=== PATIENT | male | born 1955 ===

== ENCOUNTER 2024-03-12 06:29 | Day surgery (SDC) | payer BC, SELFPAY ==
[2024-03-10 09:24] VITALS: BMI 22.2
--- NOTE | 2024-03-10 15:45 | PTCARENOTE ---
Abnormal EKG. Dr. Mak aware. No intervention required.
[2024-03-12 07:54] VITALS: BP 150/87
--- NOTE | 2024-03-12 08:05 | W.SUR.PREOP ---
Pre-Operative Surgical Note
-
I have examined this patient prior to the performance of the scheduled procedure.
The patient's condition is unchanged from the time of the current History and
Physical and the patient is able to undergo the scheduled procedure.
--- NOTE | 2024-03-12 08:05 | HP.FOC2 ---
Focused History & Physical
Chief Complaint
HPI:
Chief Complaint: Recurrent umbilical hernia/incisional hernia
HPI / Indication for Planned Procedure:
This is a 68-year-old male who presented to my office with a symptomatic recurrent umbilical hernia in the setting of a previous robotic repair at an outside hospital.
Relevant Past Medical History: Negative
Relevant Social History: Negative
Relevant Family History: Negative
Relevant Past Surgical History: Positive for (Robotic inguinal and umbilical hernia)
Review of Systems
Review of Pertinent Systems: All Systems Negative
Medication
See Medication form for detailed medications: Yes
Medication List (including Herbals & OTC):
calcium 100 mg capsule 1 mg PO DAILY 03/05/24
cyclobenzaprine 5 mg tablet 5 mg PO TID PRN pain 03/05/24
esomeprazole magnesium 20 mg capsule,delayed release (Nexium) 20 mg PO DAILY 03/05/24
gabapentin 600 mg tablet 600 mg PO DAILY 03/05/24
meloxicam 15 mg tablet 15 mg PO DAILY PRN pain 03/05/24
multivitamin 1 tab PO DAILY 03/05/24
omega 0-xkh-hyi-fish oil 1,000 mg (120 mg-180 mg) capsule (Fish Oil) 1 cap PO DAILY 03/05/24
topiramate 25 mg sprinkle capsule (Topamax) 75 mg PO DAILY 03/05/24
tramadol 300 mg tablet,extended release 24 hr 300 mg PO DAILY 03/05/24
tramadol 50 mg tablet 50 mg PO Q6H PRN pain 03/05/24
Medications Reviewed: Yes
Allergies and Reactions
Patient has Allergies: No
Noted Allergies and Reactions:
Allergy/AdvReac Type Severity Reaction Status Date / Time
No Known Allergies Allergy Unverified 03/12/24 07:51
Pertinent Physical Exam
All Other Systems: Negative
Head/Neck: Normal
Abdomen: Other (Small reducible umbilical hernia)
Diagnosis / Assessment
This is a 68-year-old male with recurrent umbilical/incisional hernia
Plan / Procedure
Will plan for an open repair with mesh
Anesthesia/Sedation to be done by Anesthesia Provider: Yes
[2024-03-12] MEDS: NORMOSOL-R/PLASMALYTE-A 1000 IV (08:09)
[2024-03-12] MEDS: TYLENOL 1000 MG PO (08:09)
[2024-03-12 08:16] VITALS: BMI 22.2
--- NOTE | 2024-03-12 08:57 | W.IMMPOSTOP ---
Surgical Immed Post Op Note
-
primary Surgeon: Sergey Bingham MD
Assisting Surgeon: None
Pre-op Diagnosis: Incisional hernia
Post-op Diagnosis: Same
Procedure Performed: Incisional hernia repair with mesh
Anesthesia Type: General
Specimen / Cultures: None
Estimated Blood Loss: 1 cc
Complications: None
Operative Findings: 1.1 cm recurrent umbilical/incisional hernia containing preperitoneal fat. The defect was reinforced with a 5 cm round macro porous uncoated polypropylene Bard soft mesh placed in an underlay position prior to closing the defect
with a running 0 PDS suture.
[2024-03-12 09:00] VITALS: BP 116/75
--- NOTE | 2024-03-12 09:01 | OR.RPT ---
Operative Report
Operative Report
Patient Name: Landon Chou
: 1955
Date of Operation: 03/12/2024
Preoperative Diagnosis: Incisional hernia
Postoperative Diagnosis: Same
Procedure(s):
Open incisional hernia repair with mesh
Surgeon(s):
Dr. Bingham
Mill Machinist(s):
SHU Kraft
Anesthesia: MAC
Estimated Blood Loss: 1 cc
Urine Output: None
Drains/Lines/Implants: 5 cm round macro porous uncoated polypropylene Bard soft mesh
Specimens: None
Indication for surgery:
The patient has a symptomatic recurrent umbilical/incisional hernia after previous robotic repair. After review of their therapeutic options, and discussion of risk benefits and alternatives they elected to pursue an open repair.
Operative Findings: 1.1 cm recurrent umbilical/incisional hernia containing preperitoneal fat. The defect was reinforced with a 5 cm round macro porous uncoated polypropylene Bard soft mesh placed in an underlay position prior to closing the defect
with a running 0 PDS suture.
Details of the operation:
After successful induction of anesthesia, the patient was prepped and draped in the supine position. A team timeout was performed confirming administration of IV antibiotics and appropriate operative DVT prophylaxis. The skin was anesthestized with
0.25% Marcaine and an infraumbilical incision was made and dissection carried down to the fascia. The hernia sac was then encircled and carefully dissected off of the umbilical stalk and returned to the abdomen. The defect measured 1.1 cm. The
subcutaneous fat was then dissected off of the anterior rectus sheath to create a pocket large enough to accommodate the mesh to ensure the mesh laid completely flat. A running 0 PDS suture was then used to close the incision in a transverse
orientation with a few of them medial bites grabbing a small portion of the mesh to ensure it was secure. The umbilical stalk was then tacked down to the fascia with a 3-0 Vicryl suture. The dermis was then approximated with interrupted 3-0 Vicryl
sutures followed by Dermabond. Once the glue had dried, we placed a folded up piece of gauze into the umbilicus and covered it with a large Tegaderm dressing and then suctioned out the gauze to create a vacuum dressing to help obliterate the
space. The patient returned to the Recovery Room in stable condition. Sponge and instrument counts were correct. No specimens sent to Pathology.
I was the attending physician and performed the procedure with assistance from the PA above. The assistance of SHU Kraft was required due to the complexity of the procedure. During the procedure Sangita assisted with retraction, resection, and
closure of the wound. I was present for all portions of the case.
Sergey Bingham MD
[2024-03-12 09:15] VITALS: BP 121/80
[2024-03-12 09:25] VITALS: BP 127/79
== END 2024-03-12 09:30 | disposition home or self-care (01) ==
LOC: SDS 06:29
PROVIDERS: ATTENDING PHYSICIAN Surgery; FAMILY PHYSICIAN Nurse Practitioner Family
DX: K43.2 Incisional hernia without obstruction or gangrene (principal)
CPT/HCPCS: 49613; 36415; 93005

== ENCOUNTER → 2024-05-25 06:18 | Day surgery (SDC) | payer BC, SELFPAY | LOC: GI 06:18 | PROVIDERS: ATTENDING PHYSICIAN Internal Medicine Gastroenterology | DX: K57.30 Diverticulosis of large intestine without perforation or abscess without bleeding (principal); K64.8 Other hemorrhoids; R19.5 Other fecal abnormalities; K31.89 Other diseases of stomach and duodenum; D50.9 Iron deficiency anemia, unspecified | CPT/HCPCS: 45378; 43239; 88305; 88342 ==